=== PATIENT | female | born 1995 | race Caucasian/White ===

== ENCOUNTER 2018-03-07 15:20 | Inpatient (IN) | payer OTHER ==
[~2018-03-07] VITALS: Ht 162.6 cm; Wt 57.6 kg
[2018-03-07 15:44] VITALS: BP 114/67
[2018-03-07] MEDS ORDERED: TERBUTALINE 1 MG/ML VIAL SUBQ SCH (16:50)
[2018-03-07] MEDS ORDERED: TERBUTALINE 1 MG/ML VIAL SUBQ ONE (16:59)
== END 2018-03-07 18:25 | disposition home or self-care (01) | DRG 566 ==
LOC: MLD 15:20
PROVIDERS: ADMIT Obstetrics & Gynecology; ATTEND Obstetrics & Gynecology
DX: O26.892 Other specified pregnancy related conditions, second trimester (principal); R10.9 Unspecified abdominal pain; Z3A.21 21 weeks gestation of pregnancy
CPT/HCPCS: 76805; 81000; 96372; J3105; Q0092